=== PATIENT | female | born 1985 | race Caucasian/White ===

== ENCOUNTER 2023-06-23 10:45 | Emergency (ER) | payer OTHER | END 2023-06-23 12:40 | disposition home or self-care (01) | LOC: JD.ED 10:45 | DX: M47.28 Other spondylosis with radiculopathy, sacral and sacrococcygeal region (principal) | CPT/HCPCS: 72192; 72192-26; 99284 ==

== ENCOUNTER 2024-04-21 09:50 | Emergency (ER) | payer OTHER | END 2024-04-21 12:27 | disposition home or self-care (01) | LOC: JD.ED 09:50 | DX: S90.31XA Contusion of right foot, initial encounter (principal); W20.8XXA Other cause of strike by thrown, projected or falling object, initial encounter; Y99.0 Civilian activity done for income or pay | CPT/HCPCS: 73630-26-RT; 73630-RT; 99284 ==